=== PATIENT | female | born 1975 | race Caucasian/White ===

== ENCOUNTER 2018-02-18 15:05 | Emergency (ER) | payer SELFPAY ==
--- NOTE | 2018-02-18 16:32 | EDPHYS ---
Physician Documentation [facility] Name: Ilana Mchugh Age: 42 yrs Sex: Female : 1975 Arrival Date: 02/18/2018 Time: 15:08 Bed 12 Private MD: Out, [facility] ED Physician Miki Ross HPI: 02/18 15:30 This 42 yrs old Female presents to ER via Ambulatory with complaints of snw Toothache. 15:30 The patient presents with pain, swelling. The problem is located in the lower left snw first molar and lower left second bicuspid. Onset: The symptoms/episode began/occurred suddenly. Duration: The symptoms are continuous, and are steadily getting worse. Associated signs and symptoms: Pertinent positives: pain, redness in area, bump to area between teeth and cheek. Severity of symptoms: At their worst the symptoms were moderate, severe. The patient has not experienced similar symptoms in the past. The patient has been recently seen by a physician: a dentist. placed on amoxil. 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 Historical: - Allergies: 15:28 No Known Allergies; hj - Home Meds: 15:28 lisinopril 10 mg Oral tab 1 tab once daily for Hypertension [Active]; Eliquis 5 mg oral hj tab 1 tab daily [Active]; - PMHx: 15:28 Hypertension; hj - PSHx: 15:28 Abscess; ; Thigh lift; hj ROS: 15:30 Constitutional: Negative for fever, chills, and weight loss, Eyes: Negative for injury, snw pain, redness, and discharge, Neck: Negative for injury, pain, and swelling, Cardiovascular: Negative for chest pain, palpitations, and edema, Respiratory: Negative for shortness of breath, cough, wheezing, and pleuritic chest pain, Abdomen/GI: Negative for abdominal pain, nausea, vomiting, diarrhea, and constipation, Back: Negative for injury and pain, : Negative for injury, bleeding, discharge, and swelling, MS/Extremity: Negative for injury and deformity, Skin: Negative for injury, rash, and discoloration, Neuro: Negative for headache, weakness, numbness, tingling, and seizure. 15:30 ENT: Positive for dental pain, Teeth pain left cheek swelling. Exam: 15:30 Constitutional: This is a well developed, well nourished patient who is awake, alert, snw and in no acute distress. Head/Face: Normocephalic, atraumatic. Eyes: Pupils equal round and reactive to light, extra-ocular motions intact. Lids and lashes normal. Conjunctiva and sclera are non-icteric and not injected. Cornea within normal limits. Periorbital areas with no swelling, redness, or edema. Neck: Trachea midline, no thyromegaly or masses palpated, and no cervical lymphadenopathy. Supple, full range of motion without nuchal rigidity, or vertebral point tenderness. No Meningismus. Chest/axilla: Normal chest wall appearance and motion. Nontender with no deformity. No lesions are appreciated. Cardiovascular: Regular rate and rhythm with a normal S1 and S2. No gallops, murmurs, or rubs. Normal PMI, no JVD. No pulse deficits. Respiratory: Lungs have equal breath sounds bilaterally, clear to auscultation and percussion. No rales, rhonchi or wheezes noted. No increased work of breathing, no retractions or nasal flaring. Abdomen/GI: Soft, non-tender, with normal bowel sounds. No distension or tympany. No guarding or rebound. No evidence of tenderness throughout. Back: No spinal tenderness. No costovertebral tenderness. Full range of motion. Skin: Warm, dry with normal turgor. Normal color with no rashes, no lesions, and no evidence of cellulitis. MS/ Extremity: Pulses equal, no cyanosis. Neurovascular intact. Full, normal range of motion. Neuro: Awake and alert, GCS 15, oriented to person, place, time, and situation. Cranial nerves II-XII grossly intact. Motor strength 5/5 in all extremities. Sensory grossly intact. Cerebellar exam normal. Normal gait. 15:30 ENT: External ear(s): are unremarkable, Ear canal(s): are normal, TM's: are normal, Nose: is normal, Mouth: is normal, Posterior pharynx: is normal, Dental exam: abscess, that is moderate, specifically in the lower left first molar (#19) and lower left second bicuspid (#20), pain, that is moderate. Vital Signs: 15:29 BP 139 / 105; Pulse 79; Resp 18; Temp 97.8(TE); Pulse Ox 100% on R/A; Weight 65.77 kg; hj Height 5 ft. 6 in. (167.64 cm); Pain 10/10; 15:29 Body Mass Index 23.40 (65.77 kg, 167.64 cm) Procedures: 15:30 expressed thick pus from between tooth and gingiva, pt expectorated large amount post snw procedure. MDM: 16:15 Patient medically screened. snw 02/19 03:43 Data reviewed: vital signs, nurses notes. Data interpreted: Pulse oximetry: on room air snw is 100 %. Interpretation: normal. Counseling: I had a detailed discussion with the patient and/or guardian regarding: the historical points, exam findings, and any diagnostic results supporting the discharge/admit diagnosis, the presence of at least one elevated blood pressure reading (>120/80) during this emergency department visit, the need for outpatient follow up, to return to the emergency department if symptoms worsen or persist or if there are any questions or concerns that arise at home. Special discussion: I have referred the patient to see his PCP for further evaluation of high blood pressure. Based on the history and exam findings, there is no indication for further emergent testing or inpatient evaluation. Administered Medications: 02/18 16:31 Drug: [place] 5 mg-325 mg 1 tabs Route: PO; 16:50 Follow up: Response: No adverse reaction 16:31 Drug: TORadol 60 mg Route: IM; Site: left deltoid; 16:50 Follow up: Response: Pain is decreased 16:31 Drug: Clindamycin 300 mg Route: PO; 16:50 Follow up: Response: No adverse reaction Disposition: 02/19 07:08 Co-signature as Attending Physician, Miki Ross MD I agree with the assessment and wa plan of care. Disposition: 18 16:32 Discharged to Home. Impression: Acute apical periodontitis of pulpal origin. - Condition is Stable. - Discharge Instructions: Dental Abscess, Dental Pain. - Prescriptions for chlorhexidine gluconate 0.12 % Mucous Membrane mouthwash - place 15 milliliter by MUCOUS MEMBRANE route 3 times per day after brushing teeth, swish in mouth for 30 seconds then spit out; 480 milliliter. Clindamycin HCl 300 mg Oral Capsule - take 1 capsule by ORAL route every 6 hours for 10 days; 40 capsule. Diclofenac Sodium 75 mg Oral Tablet Sustained Release - take 1 tablet by ORAL route 2 times per day; 30 tablet. - Medication Reconciliation Form, Thank You Letter, Antibiotic Education, Prescription Opioid Use form. - Follow up: Private Physician; When: 1 - 2 days; Reason: Recheck today's complaints, Continuance of care, Re-evaluation by your physician. Follow up: Emergency Department; When: As needed; Reason: Worsening of condition. Signatures: Cheyenne Hart FNP-C MILK CONDENSER-Csnw Lorne Urias RN RN Miki Ross MD MD wa Corrections: (The following items were deleted from the chart) 02/18 16:50 16:32 02/18/2018 16:32 Discharged to Home. Impression: Acute apical periodontitis of hj pulpal origin. Condition is Stable. Discharge Instructions: Dental Abscess, Dental Pain. Prescriptions for chlorhexidine gluconate 0.12 % Mucous Membrane mouthwash - place 15 milliliter by MUCOUS MEMBRANE route 3 times per day after brushing teeth, swish in mouth for 30 seconds then spit out; 480 milliliter, Clindamycin HCl 300 mg Oral Capsule - take 1 capsule by ORAL route every 6 hours for 10 days; 40 capsule, Diclofenac Sodium 75 mg Oral Tablet Sustained Release - take 1 tablet by ORAL route 2 times per day; 30 tablet. and Forms are Medication Reconciliation Form, Thank You Letter, Antibiotic Education, Prescription Opioid Use. Follow up: Private Physician; When: 1 - 2 days; Reason: Recheck today's complaints, Continuance of care, Re-evaluation by your physician. Follow up: Emergency Department; When: As needed; Reason: Worsening of condition. snw
--- NOTE | 2018-02-18 16:32 | ER ---
Nurse's Notes [facility] Name: Ilana Mchugh Age: 42 yrs Sex: Female : 1975 Arrival Date: 02/18/2018 Time: 15:08 Bed 12 Private MD: [facility] Diagnosis: Acute apical periodontitis of pulpal origin Presentation: 02/18 15:26 Presenting complaint: Patient states: my L lower gums on the inside is swollen last hj Thursday, its getting bad; reports chills;. Transition of care: patient was not received from another setting of care. Onset of symptoms was February 18, 2018 at 15:27. Initial Sepsis Screen: Does the patient meet any 2 criteria? No. Patient's initial sepsis screen is negative. Does the patient have a suspected source of infection? No. Patient's initial sepsis screen is negative. Care prior to arrival: None. 15:26 Method Of Arrival: Ambulatory hj 15:26 Acuity: SHANDRA 4 hj Triage Assessment: 15:28 General: Appears in no apparent distress. uncomfortable, Behavior is calm, cooperative, hj appropriate for age. Pain: Complains of pain in left jaw. EENT: Reports pain. 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 6 in. (167.64 cm); Pain 10/10; 15:29 Body Mass Index 23.40 (65.77 kg, 167.64 cm) ED Course: 15:08 Patient arrived in ED. mr 15:09 Out, [facility] is Private Physician. mr 15:09 [facility]enne [facility] snw 15:09 Miki Ross MD is Attending Physician. snw 15:27 Triage completed. hj 15:28 Arm band placed on left wrist. hj Administered Medications: 16:31 Drug: [place] 5 mg-325 mg 1 tabs Route: PO; hj 16:50 Follow up: Response: No adverse reaction hj 16:31 Drug: TORadol 60 mg Route: IM; Site: left deltoid; hj 16:50 Follow up: Response: Pain is decreased hj 16:31 Drug: Clindamycin 300 mg Route: PO; hj 16:50 Follow up: Response: No adverse reaction hj Outcome: 16:32 Discharge ordered by . octaviano 16:50 Patient left the ED. hj Signatures: Cheyenne Hart, FOILING MACHINE ADJUSTER-C FOILING MACHINE ADJUSTER-Csnw Pearl Delgado mr Lorne Urias, RN RN hj
[2018-02-18] MEDS ORDERED: HYDROCODONE/APAP 5/325 MG TAB ONE (16:35)
[2018-02-18] MEDS ORDERED: KETOROLAC 30 MG/ML INJ ONE (16:35)
[2018-02-18] MEDS ORDERED: CLINDAMYCIN HCL 150 MG CAP ONE (16:35)
== END 2018-02-18 16:50 | disposition home or self-care (01) ==
LOC: ER 15:05
DX: K04.4 Acute apical periodontitis of pulpal origin (principal)
CPT/HCPCS: 96372; 99282

== ENCOUNTER 2018-10-09 10:12 | Emergency (ER) | payer OTHER, SELFPAY ==
--- OUTSIDE RECORDS SUMMARY | 2018-10-09 10:14 | XMS REPORT ---
:1975 [facility] Address [address] [place] [address] Dr. Bernal [address] [place] [id number] Care Team Providers Name Role Phone Unavailable Unavailable Unavailable Problems This patient has no known problems. Allergies, Adverse Reactions, Alerts This patient has no known allergies or adverse reactions. Medications This patient has no known medications.
--- NOTE | 2018-10-09 10:30 | EDPHYS ---
Physician Documentation [facility] Name: Ilana Mchugh Age: 43 yrs Sex: Female : 1975 Arrival Date: 10/09/2018 Time: 10:14 Bed 18 Private MD: Out, [facility] ED Physician Derrick Gaytan HPI: 10/09 11:43 This 43 yrs old Female presents to ER via Ambulatory with complaints of snw Allergic Reaction. 11:43 The patient presents with itching, redness of skin. Onset: The symptoms/episode snw began/occurred suddenly, 2 day(s) ago, and became persistent. Associated signs and symptoms: The patient has no apparent associated signs or symptoms. At home the patient or guardian has treated the symptoms with Benadryl. Severity of symptoms: At their worst the symptoms were moderate. The patient has not experienced similar symptoms in the past. Pt was on Eliquis s/p CVA, unable to afford so she was taking Lovenox BID and Coumadin 7mg daily. This regimen has been ongoing x 2 weeks. Pt had appt with PCP on Thu. Stop Lovenox and continue Warfarin. 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 - Social history:: Smoking status: Patient uses tobacco products, smokes one pack cigarettes per day. - Ebola Screening: : Patient negative for fever greater than or equal to 101.5 degrees Fahrenheit, and additional compatible Ebola Virus Disease symptoms Patient denies exposure to infectious person Patient denies travel to an Ebola-affected area in the 21 days before illness onset No symptoms or risks identified at this time. ROS: 11:40 Constitutional: Negative for fever, chills, and weight loss, Eyes: Negative for injury, snw pain, redness, and discharge, ENT: Negative for injury, pain, and discharge, Neck: Negative for injury, pain, and swelling, Cardiovascular: Negative for chest pain, palpitations, and edema, Respiratory: Negative for shortness of breath, cough, wheezing, and pleuritic chest pain, Back: Negative for injury and pain, : Negative for injury, bleeding, discharge, and swelling, MS/Extremity: Negative for injury and deformity, Skin: Negative for injury and discoloration, +rash and intense itching around injection sites Neuro: Negative for headache, weakness, numbness, tingling, and seizure. 11:40 Abdomen/GI: Negative for abdominal pain, vomiting, diarrhea, constipation, abdominal cramps. Exam: 11:41 Constitutional: This is a well developed, well nourished patient who is awake, alert, snw and in no acute distress. Head/Face: Normocephalic, atraumatic. Eyes: Pupils equal round and reactive to light, extra-ocular motions intact. Lids and lashes normal. Conjunctiva and sclera are non-icteric and not injected. Cornea within normal limits. Periorbital areas with no swelling, redness, or edema. ENT: Nares patent. No nasal discharge, no septal abnormalities noted. Tympanic membranes are normal and external auditory canals are clear. Oropharynx with no redness, swelling, or masses, exudates, or evidence of obstruction, uvula midline. Mucous membranes moist. Neck: Trachea midline, no thyromegaly or masses palpated, and no cervical lymphadenopathy. Supple, full range of motion without nuchal rigidity, or vertebral point tenderness. No Meningismus. Chest/axilla: Normal chest wall appearance and motion. Nontender with no deformity. No lesions are appreciated. Cardiovascular: Regular rate and rhythm with a normal S1 and S2. No gallops, murmurs, or rubs. Normal PMI, no JVD. No pulse deficits. Respiratory: Lungs have equal breath sounds bilaterally, clear to auscultation and percussion. No rales, rhonchi or wheezes noted. No increased work of breathing, no retractions or nasal flaring. Back: No spinal tenderness. No costovertebral tenderness. Full range of motion. Skin: Warm, dry with normal turgor. Normal color with no rashes, no lesions, and no evidence of cellulitis. MS/ Extremity: Pulses equal, no cyanosis. Neurovascular intact. Full, normal range of motion. Neuro: Awake and alert, GCS 15, oriented to person, place, time, and situation. Cranial nerves II-XII grossly intact. Motor strength 5/5 in all extremities. Sensory grossly intact. Cerebellar exam normal. Normal gait. 11:41 Abdomen/GI: Inspection: abdomen appears normal, dry, erythematous rash surrounding injection sites of lovenox, Bowel sounds: normal, Palpation: abdomen is soft and non-tender. Vital Signs: 10:30 BP 123 / 84; Pulse 85; Resp 16; Temp 98.2; Pulse Ox 98% on R/A; Weight 68.04 kg; Height iw 5 ft. 6 in. (167.64 cm); Pain 0/10; 10:30 Body Mass Index 24.21 (68.04 kg, 167.64 cm) iw MDM: 10:23 Patient medically screened. snw 11:40 Data reviewed: vital signs, nurses notes. Data interpreted: Pulse oximetry: on room air snw is 98 %. Interpretation: normal. Counseling: I had a detailed discussion with the patient and/or guardian regarding: the historical points, exam findings, and any diagnostic results supporting the discharge/admit diagnosis, the presence of at least one elevated blood pressure reading (>120/80) during this emergency department visit, the need for outpatient follow up, to return to the emergency department if symptoms worsen or persist or if there are any questions or concerns that arise at home. Special discussion: Based on the history and exam findings, there is no indication for further emergent testing or inpatient evaluation. I discussed with the patient/guardian the need to see the primary care provider for further evaluation of the symptoms. ED course: continue warfarin, stop lovenox. Administered Medications: 10:44 Drug: Atarax 50 mg Route: PO; hb Disposition: 18:45 Co-signature as Attending Physician, Derrick Gaytan MD Available for consultation at ps1 all times . Disposition: 10/09/18 10:30 Discharged to Home. Impression: Allergic contact dermatitis due to drugs in contact with skin - Lovenox. - Condition is Stable. - Discharge Instructions: Contact Dermatitis, Rash. - Medication Reconciliation Form, Thank You Letter, Antibiotic Education, Prescription Opioid Use form. - Follow up: Private Physician; When: 1 - 2 days; Reason: Recheck today's complaints, Continuance of care, Re-evaluation by your physician. Follow up: Emergency Department; When: As needed; Reason: Worsening of condition. - Notes: Stop Lovenox. Continue Warfarin 7mg po daily Signatures: Cheyenne Hart, HR ANALYST-C HR ANALYST-Csnw Padmini Glover RN RN iw Anya Fox RN RN Derrick Gaytan MD MD ps1 Corrections: (The following items were deleted from the chart) 10:44 10:30 10/09/2018 10:30 Discharged to Home. Impression: Allergic contact dermatitis due hb to drugs in contact with skin - Lovenox. Condition is Stable. Forms are Medication Reconciliation Form, Thank You Letter, Antibiotic Education, Prescription Opioid Use. Follow up: Private Physician; When: 1 - 2 days; Reason: Recheck today's complaints, Continuance of care, Re-evaluation by your physician. Follow up: Emergency Department; When: As needed; Reason: Worsening of condition. snw
--- NOTE | 2018-10-09 10:30 | ER ---
Nurse's Notes [facility] Name: Ilana Mchugh Age: 43 yrs Sex: Female : 1975 Arrival Date: 10/09/2018 Time: 10:14 Bed 18 Private MD: Out, [facility] Diagnosis: Allergic contact dermatitis due to drugs in contact with skin-Lovenox Presentation: 10/09 10:25 Presenting complaint: Patient states: is having a reaction to her Lovenox injections, iw welts noted to abdomen, c/o itching all over. Transition of care: patient was not received from another setting of care. Onset: The symptoms/episode began/occurred yesterday. Anaphylaxis evaluation, no signs or symptoms of anaphylaxis were noted. Onset of symptoms was October 09, 2018. Risk Assessment: Do you want to hurt yourself or someone else? Patient reports no desire to harm self or others. Initial Sepsis Screen: Does the patient meet any 2 criteria? No. Patient's initial sepsis screen is negative. Does the patient have a suspected source of infection? No. Patient's initial sepsis screen is negative. Care prior to arrival: Medication(s) given: benadryl. 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 - Social history:: Smoking status: Patient uses tobacco products, smokes one pack cigarettes per day. - Ebola Screening: : Patient negative for fever greater than or equal to 101.5 degrees Fahrenheit, and additional compatible Ebola Virus Disease symptoms Patient denies exposure to infectious person Patient denies travel to an Ebola-affected area in the 21 days before illness onset No symptoms or risks identified at this time. Screenin:31 Abuse screen: Denies threats or abuse. Denies injuries from another. Nutritional iw screening: No deficits noted. Tuberculosis screening: No symptoms or risk factors identified. Fall Risk None identified. Assessment: 10:31 General: Appears in no apparent distress. Behavior is calm, cooperative. Pain: Denies iw pain. Neuro: Level of Consciousness is awake, alert, obeys commands, Moves all extremities. Full function. Cardiovascular: Patient's skin is warm and dry. Respiratory: Airway is patent Respiratory effort is even, unlabored, Breath sounds are clear bilaterally. Derm: Skin is intact, Rash noted that is itchy, urticaria, on abdomen. Musculoskeletal: Range of motion: intact in all extremities. Vital Signs: 10:30 BP 123 / 84; Pulse 85; Resp 16; Temp 98.2; Pulse Ox 98% on R/A; Weight 68.04 kg; Height iw 5 ft. 6 in. (167.64 cm); Pain 0/10; 10:30 Body Mass Index 24.21 (68.04 kg, 167.64 cm) iw ED Course: 10:14 Patient arrived in ED. mr 10:15 Out, [facility] is Private Physician. mr 10:15 Cheyenne Hart FNP-C is [facility]. snw 10:15 Derrick Gaytan MD is Attending Physician. snw 10:24 Anya Fox, JACOBO is Primary Nurse. hb 10:27 Triage completed. iw 10:30 Arm band placed on. iw 10:30 Patient has correct armband on for positive identification. Bed in low position. Call hb light in reach. Side rails up X 1. 10:31 No provider procedures requiring assistance completed. Patient did not have IV access iw during this emergency room visit. Administered Medications: 10:44 Drug: Atarax 50 mg Route: PO; hb Outcome: 10:30 Discharge ordered by . snw 10:40 Discharged to home ambulatory. hb 10:40 Condition: stable 10:40 Discharge instructions given to patient, Instructed on discharge instructions, follow up and referral plans. medication usage, Demonstrated understanding of instructions, follow-up care, medications. 10:44 Patient left the ED. hb Signatures: Cheyenne Hart FNP-C FNP-Jacqueline Elizabeth Padmini Glover RN RN iw Anya Fox, RN RN hb
[2018-10-09] MEDS ORDERED: hydrOXYzine HCl 25 MG TAB ONE (10:46)
== END 2018-10-09 10:44 | disposition home or self-care (01) ==
LOC: ER 10:12
DX: L23.3 Allergic contact dermatitis due to drugs in contact with skin (principal); T45.515A Adverse effect of anticoagulants, initial encounter; I10 Essential (primary) hypertension; F17.210 Nicotine dependence, cigarettes, uncomplicated; Z79.01 Long term (current) use of anticoagulants; Z79.899 Other long term (current) drug therapy; Z86.73 Personal history of transient ischemic attack (TIA), and cerebral infarction without residual deficits
CPT/HCPCS: 99283

== ENCOUNTER 2018-10-10 20:37 | Emergency (ER) | payer SELFPAY ==
--- OUTSIDE RECORDS SUMMARY | 2018-10-10 20:39 | XMS REPORT ---
:1975 [facility] Address [address] [place] [address] Dr. Bernal [address] [place] [id number] Care Team Providers Name Role Phone Unavailable Unavailable Unavailable Problems This patient has no known problems. Allergies, Adverse Reactions, Alerts This patient has no known allergies or adverse reactions. Medications This patient has no known medications.
--- NOTE | 2018-10-10 22:17 | ER ---
Nurse's Notes [facility] Name: Ilana Mchugh Age: 43 yrs Sex: Female : 1975 Arrival Date: 10/10/2018 Time: 20:39 Bed 10 Private MD: Out, [facility] Diagnosis: Urticaria Presentation: 10/10 20:45 Presenting complaint: Patient states: I have been giving myself loveno shots for about la1 17 days and I have been getting a rash all over my body. I was here yesterday and they gave me some meds but no prescriptions and its getting worse. Transition of care: patient was not received from another setting of care. Onset: The symptoms/episode began/occurred last week. Anaphylaxis evaluation, no signs or symptoms of anaphylaxis were noted. Onset of symptoms is unknown. Risk Assessment: Do you want to hurt yourself or someone else? Patient reports no desire to harm self or others. Initial Sepsis Screen: Does the patient meet any 2 criteria? No. Patient's initial sepsis screen is negative. Does the patient have a suspected source of infection? No. Patient's initial sepsis screen is negative. Care prior to arrival: None. 20:45 Method Of Arrival: Ambulatory la1 20:45 Acuity: SHANDRA 4 la1 Historical: - Allergies: 22:34 Lovenox; fc - Home Meds: 22:34 lisinopril 10 mg Oral tab 1 tab once daily for Hypertension [Active]; lovastatin 20 mg fc Oral tab 1 tab once daily [Active]; Melatonin Oral [Active]; trazodone 50 mg Oral tab daily [Active]; Warfarin 7 mg Oral once daily [Active]; Vitamin D Oral daily [Active]; Fish Oil Oral daily [Active]; - PMHx: 20:45 CVA; Hypertension; la1 - PSHx: 22:34 Abscess; ; Thigh lift; fc - Immunization history:: Adult Immunizations up to date. - Social history:: Smoking status: Patient/guardian denies using tobacco. - Ebola Screening: : No symptoms or risks identified at this time. Screenin:35 Abuse screen: Denies threats or abuse. Nutritional screening: No deficits noted. fc Tuberculosis screening: No symptoms or risk factors identified. Fall Risk None identified. Assessment: 21:24 General: Appears uncomfortable, slender, Behavior is calm, cooperative, appropriate for fc age. Pain: Denies pain. Neuro: Level of Consciousness is awake, alert, obeys commands, Oriented to person, place, time, situation, Appropriate for age. Cardiovascular: No deficits noted. Respiratory: Airway is patent Trachea midline Respiratory effort is even, unlabored, Respiratory pattern is regular, symmetrical, Breath sounds are clear bilaterally. GI: No deficits noted. : No deficits noted. EENT: No deficits noted. Derm: Skin is pink, warm \T\ dry. Rash noted that is itchy, red, raised, urticaria, on face, back, chest, abdomen and neck Reports itching. 22:00 Reassessment: Dr Johnson in to see and examine pt. 22:23 Reassessment: Pt given medication as ordered. Vital Signs: 20:47 BP 120 / 90; Pulse 80; Resp 16; Temp 97.8(TE); Pulse Ox 98% on R/A; Weight 68.04 kg; la1 Height 5 ft. 6 in. (167.64 cm); 20:47 Body Mass Index 24.21 (68.04 kg, 167.64 cm) la1 ED Course: 20:39 Patient arrived in ED. mr 20:39 Out, of [facility] is Private Physician. mr 20:45 Arm band placed on left wrist. la1 20:47 Triage completed. la1 21:35 Patient has correct armband on for positive identification. Call light in reach. fc 21:35 No provider procedures requiring assistance completed. 22:04 Scott Johnson MD is Attending Physician. pk 22:33 Patient did not have IV access during this emergency room visit. Administered Medications: 22:20 Drug: Decadron 10 mg Route: IM; Site: right gluteus; fc 22:32 Follow up: Response: No adverse reaction; No change in condition fc Outcome: 22:15 Discharge ordered by . pkl 22:32 Discharged to home ambulatory. 22:32 Condition: good 22:32 Discharge instructions given to patient, Instructed on discharge instructions, follow up and referral plans. no drinking with medication, no driving heavy equipment, medication usage, Demonstrated understanding of instructions, follow-up care, medications, Prescriptions given X two (Atarax, and Lidex Cream) 22:35 Patient left the ED. Signatures: Scott Johnson MD MD pkl RiveraJacqueline mr Taylor, Gia, RN RN fc Onesimo Escobar RN RN la1 Corrections: (The following items were deleted from the chart) 22:34 20:45 Allergies: NKA; la1 fc
--- NOTE | 2018-10-10 22:17 | EDPHYS ---
Physician Documentation [facility] Name: Ilana Mchugh Age: 43 yrs Sex: Female : 1975 Arrival Date: 10/10/2018 Time: 20:39 Bed 10 Private MD: Out, [facility] ED Physician Scott Johnson HPI: 10/10 22:10 This 43 yrs old Female presents to ER via Ambulatory with complaints of pkl Allergic Reaction. 22:10 The patient presents with itching, rash, that is diffuse. Onset: The symptoms/episode pkl began/occurred 3 day(s) ago. Historical: - Allergies: 22:34 Lovenox; fc - Home Meds: 22:34 lisinopril 10 mg Oral tab 1 tab once daily for Hypertension [Active]; lovastatin 20 mg fc Oral tab 1 tab once daily [Active]; Melatonin Oral [Active]; trazodone 50 mg Oral tab daily [Active]; Warfarin 7 mg Oral once daily [Active]; Vitamin D Oral daily [Active]; Fish Oil Oral daily [Active]; - PMHx: 20:45 CVA; Hypertension; la1 - PSHx: 22:34 Abscess; ; Thigh lift; fc - Immunization history:: Adult Immunizations up to date. - Social history:: Smoking status: Patient/guardian denies using tobacco. - Ebola Screening: : No symptoms or risks identified at this time. ROS: 22:10 Eyes: Negative for injury, pain, redness, and discharge, ENT: Negative for injury, pkl pain, and discharge, Neck: Negative for injury, pain, and swelling, Cardiovascular: Negative for chest pain, palpitations, and edema, Respiratory: Negative for shortness of breath, cough, wheezing, and pleuritic chest pain, Abdomen/GI: Negative for abdominal pain, nausea, vomiting, diarrhea, and constipation, Back: Negative for injury and pain, : Negative for injury, bleeding, discharge, and swelling, MS/Extremity: Negative for injury and deformity. 22:10 Skin: Positive for rash, diffusely. 22:10 Neuro: Negative for altered mental status. Exam: 22:10 Head/Face: Normocephalic, atraumatic. Eyes: Pupils equal round and reactive to light, pkl extra-ocular motions intact. Lids and lashes normal. Conjunctiva and sclera are non-icteric and not injected. Cornea within normal limits. Periorbital areas with no swelling, redness, or edema. ENT: Nares patent. No nasal discharge, no septal abnormalities noted. Tympanic membranes are normal and external auditory canals are clear. Oropharynx with no redness, swelling, or masses, exudates, or evidence of obstruction, uvula midline. Mucous membranes moist. Neck: Trachea midline, no thyromegaly or masses palpated, and no cervical lymphadenopathy. Supple, full range of motion without nuchal rigidity, or vertebral point tenderness. No Meningismus. Chest/axilla: Normal chest wall appearance and motion. Nontender with no deformity. No lesions are appreciated. Cardiovascular: Regular rate and rhythm with a normal S1 and S2. No gallops, murmurs, or rubs. Normal PMI, no JVD. No pulse deficits. Respiratory: Lungs have equal breath sounds bilaterally, clear to auscultation and percussion. No rales, rhonchi or wheezes noted. No increased work of breathing, no retractions or nasal flaring. Abdomen/GI: Soft, non-tender, with normal bowel sounds. No distension or tympany. No guarding or rebound. No evidence of tenderness throughout. Back: No spinal tenderness. No costovertebral tenderness. Full range of motion. MS/ Extremity: Pulses equal, no cyanosis. Neurovascular intact. Full, normal range of motion. Neuro: Awake and alert, GCS 15, oriented to person, place, time, and situation. Cranial nerves II-XII grossly intact. Motor strength 5/5 in all extremities. Sensory grossly intact. Cerebellar exam normal. Normal gait. 22:10 Skin: rash can be described as urticarial, and is diffusely located. Vital Signs: 20:47 BP 120 / 90; Pulse 80; Resp 16; Temp 97.8(TE); Pulse Ox 98% on R/A; Weight 68.04 kg; la1 Height 5 ft. 6 in. (167.64 cm); 20:47 Body Mass Index 24.21 (68.04 kg, 167.64 cm) la1 MDM: 22:14 Data reviewed: vital signs, nurses notes. pkl 22:15 Patient medically screened. pkl Administered Medications: 22:20 Drug: Decadron 10 mg Route: IM; Site: right gluteus; fc 22:32 Follow up: Response: No adverse reaction; No change in condition fc Disposition: 10/10/18 22:15 Discharged to Home. Impression: Urticaria. - Condition is Stable. - Medication Reconciliation Form, Thank You Letter, Antibiotic Education, Prescription Opioid Use form. - Follow up: Private Physician; When: 2 - 3 days; Reason: Re-evaluation by your physician. - Problem is new. - Symptoms are unchanged. Signatures: Scott Johnson MD MD pkGia Miranda RN RN Onesimo Escobar RN RN la1 Corrections: (The following items were deleted from the chart) 22:34 20:45 Allergies: NKA; la1 22:35 22:15 10/10/2018 22:15 Discharged to Home. Impression: Urticaria. Condition is Stable. fc Forms are Medication Reconciliation Form, Thank You Letter, Antibiotic Education, Prescription Opioid Use. Follow up: Private Physician; When: 2 - 3 days; Reason: Re-evaluation by your physician. Problem is new. Symptoms are unchanged. pkl
[2018-10-10] MEDS ORDERED: DEXAMETHASONE 10 MG/ML VIAL ONE (22:26)
== END 2018-10-10 22:35 | disposition home or self-care (01) ==
LOC: ER 20:37
DX: L50.9 Urticaria, unspecified (principal); I10 Essential (primary) hypertension; Z79.01 Long term (current) use of anticoagulants; Z79.899 Other long term (current) drug therapy; Z86.73 Personal history of transient ischemic attack (TIA), and cerebral infarction without residual deficits
CPT/HCPCS: 96372; 99283; J1100

== ENCOUNTER 2021-09-15 20:35 | Emergency (ER) | payer OTHER, SELFPAY ==
--- OUTSIDE RECORDS SUMMARY | 2021-09-15 20:38 | XMS REPORT | Continuity of Care Document ---
:1975 Author Organization [facility] t Address [address] [place] [place] [id number] Care Team Providers Name Role Phone Unavailable Unavailable Unavailable Problems This patient has no known problems. Allergies, Adverse Reactions, Alerts This patient has no known allergies or adverse reactions. Medications This patient has no known medications. Procedures This patient has no known procedures. Results This patient has no known results.
[2021-09-15 22:20] LABS: Urine Blood Negative (Negative); Urine Glucose Negative (Negative); Urine Protein Negative (Negative)
[2021-09-15 22:34] LABS: Protime INR 0.86
[2021-09-15 22:35] LABS: Absolute Lymphocytes (CBC) 5.5 K/uL (0.7-4.9); Hematocrit 41.8 % (36.0-45.0); Lymphocytes % 39.9 % (15.3-44.8); MPV 7.7 fL (7.6-11.3); RBC Red Blood Cell Count 4.56 M/uL (3.86-4.86)
[2021-09-15 22:37] LABS: Barbiturates NEGATIVE (NEGATIVE); Benzodiazepines NEGATIVE (NEGATIVE); Cocaine NEGATIVE (NEGATIVE); METHAMPHETAM NEGATIVE (NEGATIVE); Methadone NEGATIVE (NEGATIVE); Opiates NEGATIVE (NEGATIVE); Phencyclidine NEGATIVE (NEGATIVE); THC Cannibis NEGATIVE (NEGATIVE)
[2021-09-15] MEDS ORDERED: METOCLOPRAMIDE 10 MG/2mL INJ ONE (22:41)
[2021-09-15] MEDS ORDERED: DIPHENHYDRAMINE 50 MG/ML VIAL ONE (22:41)
[2021-09-15] MEDS ORDERED: NA CHLORIDE 0.9% 1,000 ML ONE (22:42)
[2021-09-15] MEDS ORDERED: ACETAMINOPHEN 500 MG TAB ONE (22:42)
[2021-09-15 22:53] LABS: ALT/SGPT 26 U/L (12-78); AST/SGOT 17 U/L (15-37); Albumin 3.6 g/dL (3.4-5.0); Alkaline Phosphatase 74 U/L (45-117); BUN Blood Urea Nitrogen 9 mg/dL (7-18); Bicarbonate 24 mmol/L (21-32); Bilirubin Direct < 0.1 mg/dL (0-0.2); Bilirubin Total 0.2 mg/dL (0.2-1.0); Glucose Level 113 mg/dL (74-106); Lipase 86 U/L (73-393); Magnesium 2.2 mg/dL (1.8-2.4); NT PRO-BNP 47 pg/mL (<125); Potassium 3.8 mmol/L (3.5-5.1); Protein, Total 7.3 g/dL (6.4-8.2); Sodium Level 143 mmol/L (136-145); Troponin (Emerg Dept Use Only) < 0.02 ng/mL (0.0-0.045)
[2021-09-16 00:33] LABS: SARS-COV-2 RT PCR NEGATIVE (NEGATIVE)
--- NOTE | 2021-09-16 00:59 | EDPHYS ---
Physician Documentation [facility] Name: Ilana Mchugh Age: 46 yrs Sex: Female : 1975 Arrival Date: 09/15/2021 Time: 20:40 Bed 12 Private MD: ED Physician Amaury Chamberlain HPI: 09/15 22:10 This 46 yrs old Female presents to ER via Ambulatory with complaints of Headache. mh7 22:10 The patient complains of pain to the Right side of head. The patient describes the mh7 headache as intermittent, throbbing, waxing and waning. Onset: The symptoms/episode began/occurred today, at 06:30. Associated signs and symptoms: Pertinent positives: nausea, Photophobia vomiting, Diarrhea, abdominal cramping, Pertinent negatives: altered mental status, dizziness, fever, malaise, neck stiffness, paresthesias, rash, sinus congestion, sinus tenderness, vision changes, vision loss, weakness, vertigo. Severity of symptoms: At its worst the pain was moderate, last night, in the emergency department the pain is unchanged. Headache History: The patient has had previous headaches and this one is similar to previous episodes. The symptoms are alleviated by nothing. the symptoms are aggravated by lights, movement, noise, stress. 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 - Social history:: Smoking status: Patient reports the use of cigarette tobacco products, smokes one-half pack cigarettes per day, Patient/guardian denies using alcohol, street drugs. ROS: 22:10 Constitutional: Negative for fever, chills, and weight loss, Eyes: Negative for injury, mh7 pain, redness, and discharge, ENT: Negative for injury, pain, and discharge, Neck: Negative for injury, pain, and swelling, Cardiovascular: Negative for chest pain, palpitations, and edema, Respiratory: Negative for shortness of breath, cough, wheezing, and pleuritic chest pain, Back: Negative for injury and pain, : Negative for injury, bleeding, discharge, and swelling, MS/Extremity: Negative for injury and deformity, Skin: Negative for injury, rash, and discoloration, Psych: Negative for depression, anxiety, suicide ideation, homicidal ideation, and hallucinations, Allergy/Immunology: Negative for hives, rash, and allergies, Endocrine: Negative for neck swelling, polydipsia, polyuria, polyphagia, and marked weight changes, Hematologic/Lymphatic: Negative for swollen nodes, abnormal bleeding, and unusual bruising. Exam: 22:10 Eyes: Pupils equal round and reactive to light, extra-ocular motions intact. Lids and mh7 lashes normal. Conjunctiva and sclera are non-icteric and not injected. Cornea within normal limits. Periorbital areas with no swelling, redness, or edema. Neck: Trachea midline, no thyromegaly or masses palpated, and no cervical lymphadenopathy. Supple, full range of motion without nuchal rigidity, or vertebral point tenderness. No Meningismus. Chest/axilla: Normal chest wall appearance and motion. Nontender with no deformity. No lesions are appreciated. Cardiovascular: Regular rate and rhythm with a normal S1 and S2. No gallops, murmurs, or rubs. Normal PMI, no JVD. No pulse deficits. Respiratory: Lungs have equal breath sounds bilaterally, clear to auscultation and percussion. No rales, rhonchi or wheezes noted. No increased work of breathing, no retractions or nasal flaring. Back: No spinal tenderness. No costovertebral tenderness. Full range of motion. Skin: Warm, dry with normal turgor. Normal color with no rashes, no lesions, and no evidence of cellulitis. MS/ Extremity: Pulses equal, no cyanosis. Neurovascular intact. Full, normal range of motion. Neuro: Awake and alert, GCS 15, oriented to person, place, time, and situation. Cranial nerves II-XII grossly intact. Motor strength 5/5 in all extremities. Sensory grossly intact. Cerebellar exam normal. Normal gait. Psych: Awake, alert, with orientation to person, place and time. Behavior, mood, and affect are within normal limits. 22:10 Constitutional: The patient appears in no acute distress, alert, awake, anxious. 22:10 Head/face: Noted is tenderness, that is moderate, of the Right scalp. 22:10 Abdomen/GI: Inspection: abdomen appears normal, Bowel sounds: normal, in all quadrants, mh7 Palpation: mild abdominal tenderness, in the epigastric area, right upper quadrant and left upper quadrant, mass, is not appreciated, rebound tenderness, is not appreciated, voluntary guarding, is not appreciated, involuntary guarding, is not appreciated, no appreciated organomegaly, Rectal exam: the exam is deferred, because of patient request, Indicators: McBurney's point is not tender, Ovalles's sign is negative, Rovsing's sign is negative, Obturator sign is negative, Psoas sign is negative, Liver: no appreciated palpable abnormalities, Hernia: not appreciated. Vital Signs: 20:53 BP 151 / 117; Pulse 93; Resp 20; Temp 98.5(TE); Pulse Ox 100% on R/A; Weight 63.5 kg; ld1 Height 5 ft. 5 in. (165.10 cm); Pain 9/10; 21:59 BP 146 / 106; Pulse 82; Resp 18; Pulse Ox 100% on R/A; lp1 22:45 BP 133 / 102; Pulse 78; Resp 18; Pulse Ox 98% on R/A; Pain 9/10; lp1 09/16 00:47 BP 112 / 83; Pulse 72; Resp 18; Pulse Ox 99% on R/A; lp1 09/15 20:53 Body Mass Index 23.30 (63.50 kg, 165.10 cm) ld1 Superior Coma Score: 00:56 Eye Response: spontaneous(4). Verbal Response: oriented(5). Motor Response: obeys mh7 commands(6). Total: 15. MDM: 00:56 Differential diagnosis: cluster headache, hypoglycemia, hyponatremia, intracerebral mh7 hemorrhage, meningitis, migraine, subarachnoid bleed, tension headache, vasomotor headache. Data reviewed: vital signs, nurses notes, old medical records, lab test result(s), cardiac enzymes, CBC, drug level(s), alcohol, electrolytes, urinalysis, urine drug screen, EKG, radiologic studies, CT scan, plain films. Data interpreted: Pulse oximetry: on room air is 99 %. Interpretation: normal. Counseling: I had a detailed discussion with the patient and/or guardian regarding: the historical points, exam findings, and any diagnostic results supporting the discharge/admit diagnosis, lab results, radiology results, to return to the emergency department if symptoms worsen or persist or if there are any questions or concerns that arise at home. Response to treatment: the patient's symptoms have resolved after treatment, the patient's blood pressure is in an acceptable range, mental status has returned to baseline, the patient no longer shows bradycardia, the patient is not short of breath, the patient is not tachycardic, the patient's pain is gone, the patient's temperature has normalized. Refusal of service: The patient/guardian displays adequate decision making capability and despite a detailed discussion of alternatives, benefits, risks, and consequences refuses: Lumbar Puncture procedure. 00:58 Patient medically screened. [facility] 09/15 22:08 Order name: Basic Metabolic Panel [facility] 09/15 22:08 Order name: CBC with Diff; Complete Time: 23:10 [facility] 09/15 22:08 Order name: LFT's; Complete Time: 23:10 [facility] 09/15 22:08 Order name: Magnesium; Complete Time: 23:10 [facility] 09/15 22:08 Order name: NT PRO-BNP; Complete Time: 23:10 [facility] 09/15 22:08 Order name: PT-INR; Complete Time: 23:10 [facility] 09/15 22:08 Order name: Troponin (emerg Dept Use Only); Complete Time: 23:10 [facility] 09/15 22:08 Order name: UDS; Complete Time: 23:10 [facility] 09/15 22:08 Order name: Lipase; Complete Time: 23:10 [facility] 09/15 22:09 Order name: COVID-19/FLU A+B (Document "Date of Onset" if Symptomatic); Complete Time: [facility] 00:49 09/15 22:10 Order name: Basic Metabolic Panel; Complete Time: 23:10 [facility]MO 09/15 22:12 Order name: ETOH Level; Complete Time: 23:10 [facility] 09/15 22:20 Order name: Urine Dipstick-Ancillary EDMS 09/15 22:22 Order name: Urine --Ancillary (enter results); Complete Time: 23:59 cs9 09/15 22:08 Order name: XRAY Chest (1 view) [facility] 09/15 22:08 Order name: EKG; Complete Time: 22:11 [facility] 09/15 22:08 Order name: Cardiac monitoring; Complete Time: 22:59 [facility] 09/15 22:08 Order name: EKG - Nurse/Tech; Complete Time: 22:56 [facility] 09/15 22:08 Order name: IV Saline Lock; Complete Time: 22:31 [facility] 09/15 22:08 Order name: Labs collected and sent; Complete Time: 22:31 [facility] 09/15 22:08 Order name: O2 Per Protocol; Complete Time: 22:11 [facility] 09/15 22:08 Order name: O2 Sat Monitoring; Complete Time: 22:12 [facility] 09/15 22:08 Order name: Urine Dipstick-Ancillary (obtain specimen); Complete Time: 22:21 [facility] 09/15 22:08 Order name: Urine Test (obtain specimen); Complete Time: 22:21 [facility] 09/15 22:08 Order name: CT Head Brain wo Cont [facility] 09/15 22:08 Order name: CT Abd/Pelvis - Without Contrast [facility] Administered Medications: 09/15 22:45 Drug: NS 0.9% 1000 ml Route: IV; Rate: 1000 ml; Site: right forearm; 1 09/16 00:15 Follow up: IV Status: Completed infusion; IV Intake: 1000ml [facility] 09/15 22:45 Drug: Reglan (metoCLOPramide) 10 mg Route: IVP; Site: right forearm; 1 09/16 00:00 Follow up: Response: No adverse reaction [facility] 09/15 22:45 Drug: Benadryl (diphenhydrAMINE) 50 mg Route: IVP; Site: right forearm; 1 09/16 00:00 Follow up: Response: No adverse reaction [facility] 09/15 22:45 Drug: Tylenol 1000 mg Route: PO; 1 09/16 00:00 Follow up: Response: No adverse reaction [facility] Disposition Summary: 09/16/21 00:58 Discharge Ordered Location: Home [facility] Problem: new [facility] Symptoms: have improved [facility] Condition: Stable [facility] Diagnosis - Headache 7 - Upper abdominal pain, unspecified 7 - Nausea with vomiting, unspecified 7 - Diarrhea, unspecified 7 - Diverticulosis of large intestine without perforation or abscess without bleeding [facility] Followup: [facility] - With: Private Physician - When: 1 - 2 days - Reason: Worsening of condition, Recheck today's complaints, Continuance of care, Re-evaluation by your physician Followup: [facility] - With: Cory Ramirez MD - When: 1 - 2 days - Reason: Worsening of condition, Recheck today's complaints Discharge Instructions: - Discharge Summary Sheet mh7 - Diarrhea, Adult 7 - High-Fiber Diet 7 - Diverticulosis [facility] - General Headache Without Cause 7 - Nausea and Vomiting, Adult 7 - Abdominal Pain, Adult, [id number] [facility] Forms: - Medication Reconciliation Form [facility] - Thank You Letter [facility] - Antibiotic Education [facility] - Prescription Opioid Use [facility] Prescriptions: - ondansetron 4 mg Oral tablet,disintegrating - place 1 tablet by TRANSLINGUAL route every 8 hours As needed; 10 tablet; 7 Refills: 0, Product Selection Permitted - Flagyl 500 mg Oral Tablet - take 1 tablet by ORAL route every 8 hours for 7 days; 21 tablet; Refills: 0, [facility] Product Selection Permitted - Cipro 500 mg Oral Tablet - take 1 tablet by ORAL route every 12 hours for 7 days; 14 tablet; Refills: 0, [facility] Product Selection Permitted - dicyclomine 10 mg Oral Capsule - take 1 capsule by ORAL route 4 times per day As needed; 20 capsule; Refills: 0, [facility] Product Selection Permitted Signatures: Dispatcher [employer] Gloria Riley, RN RN lp1 Amaury Chamberlain MD MD 7 Zoe Madden RN RN ld1
--- NOTE | 2021-09-16 00:59 | ER ---
Nurse's Notes [facility] Name: Ilana Mchugh Age: 46 yrs Sex: Female : 1975 Arrival Date: 09/15/2021 Time: 20:40 Bed 12 Private MD: Diagnosis: Headache;Upper abdominal pain, unspecified;Nausea with vomiting, unspecified;Diarrhea, unspecified;Diverticulosis of large intestine without perforation or abscess without bleeding Presentation: 09/15 20:53 Chief complaint: Patient states: headache began yesterday when I woke up at 0630. Pt ld1 reports being sick to her stomach \\T\\ throwing up today. N/V/D. Coronavirus screen: Client presents with at least one sign or symptom that may indicate coronavirus-19. Standard/surgical mask placed on the client. Ebola Screen: No symptoms or risks identified at this time. Initial Sepsis Screen: Does the patient meet any 2 criteria? No. Patient's initial sepsis screen is negative. Does the patient have a suspected source of infection? No. Patient's initial sepsis screen is negative. Risk Assessment: Do you want to hurt yourself or someone else? Patient reports no desire to harm self or others. Onset of symptoms was September 15, 2021. 20:53 Method Of Arrival: Ambulatory ld1 20:53 Acuity: SHANDRA 4 ld1 Triage Assessment: 20:58 Headache History: The patient has had previous headaches and this one is similar to ld1 previous episodes. General: Appears in no apparent distress. comfortable, Behavior is calm, cooperative, appropriate for age. Pain: Complains of pain in face Pain does not radiate. Pain currently is 9 out of 10 on a pain scale. Quality of pain is described as throbbing, Pain began suddenly, Is continuous, Also complains of nausea, sleeplessness. EENT: No signs and/or symptoms were reported regarding the EENT system. Neuro: Level of Consciousness is awake, alert, obeys commands, Oriented to person, place, time, situation, Appropriate for age. Cardiovascular: Capillary refill < 3 seconds Patient's skin is warm and dry. Respiratory: Airway is patent Respiratory effort is even, unlabored, Respiratory pattern is regular, symmetrical. GI: Abdomen is flat, non-distended. : No signs and/or symptoms were reported regarding the genitourinary system. Derm: No signs and/or symptoms reported regarding the dermatologic system. Musculoskeletal: No signs and/or symptoms reported regarding the musculoskeletal system. 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 - Social history:: Smoking status: Patient reports the use of cigarette tobacco products, smokes one-half pack cigarettes per day, Patient/guardian denies using alcohol, street drugs. Screenin:59 Abuse screen: Denies threats or abuse. Denies injuries from another. Nutritional lp1 screening: No deficits noted. Tuberculosis screening: No symptoms or risk factors identified. Fall Risk None identified. Assessment: 23:35 Reassessment: Patient reports no improvement in headache at this time; does report lp1 feeling "sleepy". 09/16 00:48 Reassessment: Patient and/or family updated on plan of care and expected duration. Pain lp1 level reassessed. Appears to be resting, eyes closed Patient states feeling better. Patient states symptoms have improved. Vital Signs: 09/15 20:53 BP 151 / 117; Pulse 93; Resp 20; Temp 98.5(TE); Pulse Ox 100% on R/A; Weight 63.5 kg; ld1 Height 5 ft. 5 in. (165.10 cm); Pain 9/10; 21:59 BP 146 / 106; Pulse 82; Resp 18; Pulse Ox 100% on R/A; lp1 22:45 BP 133 / 102; Pulse 78; Resp 18; Pulse Ox 98% on R/A; Pain 9/10; lp1 09/16 00:47 BP 112 / 83; Pulse 72; Resp 18; Pulse Ox 99% on R/A; lp1 09/15 20:53 Body Mass Index 23.30 (63.50 kg, 165.10 cm) ld1 P[place]an Coma Score: 00:56 Eye Response: spontaneous(4). Verbal Response: oriented(5). Motor Response: obeys mh7 commands(6). Total: 15. ED Course: 09/15 20:40 Patient arrived in ED. bp1 20:57 Triage completed. ld1 20:58 Arm band placed on right wrist. ld1 21:50 Amaury Chamberlain MD is Attending Physician. mh7 21:59 Patient has correct armband on for positive identification. lp1 22:08 Gloria Tovar, JACOBO is Primary Nurse. lp1 22:31 Inserted saline lock: 22 gauge in right forearm, using aseptic technique. Blood ds4 collected. 22:56 XRAY Chest (1 view) In Process Unspecified. EDMS 23:17 CT Head Brain wo Cont In Process Unspecified. EDMS 23:17 CT Abd/Pelvis - Without Contrast In Process Unspecified. EDMS 09/16 00:58 Cory Ramirez MD is Referral Physician. mh7 01:12 No provider procedures requiring assistance completed. IV discontinued, No lp1 redness/swelling at site. Pressure dressing applied. Administered Medications: 09/15 22:45 Drug: NS 0.9% 1000 ml Route: IV; Rate: 1000 ml; Site: right forearm; lp1 09/16 00:15 Follow up: IV Status: Completed infusion; IV Intake: 1000ml lp1 09/15 22:45 Drug: Reglan (metoCLOPramide) 10 mg Route: IVP; Site: right forearm; lp1 09/16 00:00 Follow up: Response: No adverse reaction lp1 09/15 22:45 Drug: Benadryl (diphenhydrAMINE) 50 mg Route: IVP; Site: right forearm; lp1 09/16 00:00 Follow up: Response: No adverse reaction lp1 09/15 22:45 Drug: Tylenol 1000 mg Route: PO; lp1 09/16 00:00 Follow up: Response: No adverse reaction lp1 Intake: 00:15 IV: 1000ml; Total: 1000ml. lp1 Outcome: 00:58 Discharge ordered by . mh7 01:12 Discharged to home ambulatory, with friend. lp1 01:12 Condition: good 01:12 Discharge instructions given to patient, Instructed on discharge instructions, follow up and referral plans. medication usage, Demonstrated understanding of instructions, follow-up care, medications, Prescriptions given X 4. 01:13 Patient left the ED. lp1 Signatures: Dispatcher [employer] EDMS Gloria Tovar, RN RN lp1 Jun Calle 4 Mara Tavares Maurice, MD MD 7 Zoe Madden, RN RN ld1
[2021-09-16 01:25] VITALS: TEMP 98.5
[2021-09-16 01:29] VITALS: BP 112/83; O2SAT 99
--- NOTE | 2021-09-16 10:04 | RAD REPORT ---
EXAM DESCRIPTION: RAD - Chest Single View - 09/15/2021 10:56 pm CLINICAL HISTORY: Hypertensive COMPARISON: None TECHNIQUE: AP portable chest image was obtained 09/15/2021 10:56 pm . FINDINGS: Lungs are clear. Heart and vasculature are normal. No measurable pleural effusion and no p neumothorax. No acute bony abnormality seen. No acute aortic findings suspected. IMPRESSION: No acute cardiopulmonary process.
--- NOTE | 2021-09-16 13:03 | RAD REPORT ---
EXAM DESCRIPTION: CT - Head Brain Wo Cont - 09/16/2021 6:39 am CLINICAL HISTORY: 46 years Female HEADACHE COMPARISON: CT head without contrast dated 04/16/2021 TECHNIQUE: Contiguous axial images of the brain were obtained without the administration of intraven ous contrast.This exam was performed according to our departmental dose-optimization program which in cludes use of Automated Exposure Control, adjustment of the mA and/or kV according to patient size an d/or use of iterative reconstruction technique. DLP: 827 mGy*cm FINDINGS: Brain: Unchanged encephalomalacia involving the bilateral occipital lobes and left cerebel lum. No acute intracranial hemorrhage. No extra-axial collection. No mass effect or herniation. Ventricles: Within normal limits in size. Globes and orbits: No acute abnormality. Bones: No acute osseous finding Paranasal sinuses: Paranasal sinuses are clear. Mastoid air cells: Well pneumatized. Soft tissues: Within normal limits IMPRESSION: No acute intracranial hemorrhage, hydrocephalus or herniation. Unchanged bilateral occipital and left cerebellar encephalomalacia. Consider MR brain if clinically i ndicated. Electronically signed by: David Ruiz DO 09/15/2021 11:32 PM [facility] Due to temporary technical issues with the PACS/Fluency reporting system, reports are being signed by the in house radiologist without review as a courtesy to ensure prompt reporting. The interpreting r adiologist is fully responsible for the content of the report.
--- NOTE | 2021-09-16 13:58 | RAD REPORT ---
EXAM DESCRIPTION: CT - Abdomen Pelvis Wo Contrast - 09/16/2021 6:[address] Abdomen and Pelvis Without Intravenous Contrast CLINICAL HISTORY: The patient is 46 years old and is Female; Abd pain; Nausea / vomiting TECHNIQUE: Axial computed tomography images of the abdomen and pelvis without intravenous contrast. Sagittal and coronal reformatted images were created and reviewed. This CT exam was performed usi ng one or more of the following dose reduction techniques: automated exposure control, adjustment o f the mA and/or kV according to patient size, and/or use of iterative reconstruction technique. DLP: 660 mGy*cm COMPARISON: None. FINDINGS: LUNG BASES: Lung bases are clear. HEART: Visualized heart is normal. ABDOMEN: LIVER: Unremarkable. GALLBLADDER AND BILE DUCTS: Unremarkable. No calcified stones. No ductal dilation. PANCREAS: Unremarkable. No ductal dilation. SPLEEN: Unremarkable. No splenomegaly. ADRENALS: Unremarkable. No mass. KIDNEYS AND URETERS: Unremarkable. No obstructing stones. No hydronephrosis. STOMACH AND BOWEL: Trace sigmoid diverticulosis. No acute diverticulitis. No obstruction. PELVIS: APPENDIX: The appendix is seen and is within normal limits. BLADDER: Unremarkable. No stones. REPRODUCTIVE: Unremarkable as visualized. ABDOMEN and PELVIS: INTRAPERITONEAL SPACE: Unremarkable. No free air. No significant fluid collection. BONES/JOINTS: L4-5 and L5-S1 degenerative changes and vacuum disc phenomenon. No acute fracture. No dislocation. SOFT TISSUES: Small fat-containing of vertical hernia. VASCULATURE: Mild atherosclerotic vascular calcifications. No abdominal aortic aneurysm. LYMPH NODES: Unremarkable. No enlarged lymph nodes. IMPRESSION: 1. No acute abdominal or pelvic abnormity. 2. Trace sigmoid diverticulosis. No acute diverticulitis. 3. L4-5 and L5-S1 degenerative changes and vacuum disc phenomenon. Electronically signed by: David Ruiz DO 09/15/2021 11:34 PM [employer] Due to temporary technical issues with the PACS/Fluency reporting system, reports are being signed by the in house radiologist without review as a courtesy to ensure prompt reporting. The interpreting r adiologist is fully responsible for the content of the report.
== END 2021-09-16 01:13 | disposition home or self-care (01) ==
LOC: ER 20:35
DX: R51.9 Headache, unspecified (principal); R11.2 Nausea with vomiting, unspecified; R19.7 Diarrhea, unspecified; K57.30 Diverticulosis of large intestine without perforation or abscess without bleeding; Z88.8 Allergy status to other drugs, medicaments and biological substances; I10 Essential (primary) hypertension; I63.9 Cerebral infarction, unspecified; Z20.822 Contact with and (suspected) exposure to COVID-19
CPT/HCPCS: 96361; 93005; 85025; 80048; 36415; 80320; 83735; 81025; 85610; 80076; 81003; 84484; 83690; 83880; 0240U; 80307; 70450; 74176; 71045; 96375; 96374; 99284; J2765; J1200; J7030